=== PATIENT | male | born 1970 | race Caucasian/White ===

== ENCOUNTER 2017-08-13 18:45 | Emergency (ER) | payer OTHER ==
[2017-08-13] MEDS ORDERED: LORazepam 2 MG/ML SDV IVPUSH ONE (19:41)
[2017-08-13] MEDS ORDERED: Metoprolol Tartrate 25 MG Tab PO ONE (19:42)
[2017-08-13] MEDS ORDERED: Lisinopril 10 MG Tab PO ONE (19:42)
[2017-08-13] MEDS ORDERED: methylPREDNISolone Sodium Succinate 125 MG/2 ML SDV IVPUSH ONE (19:43)
[2017-08-13] MEDS ORDERED: Sodium Chloride 0.9% 1,000 ML IV SCH (19:45)
[2017-08-13] MEDS ORDERED: Lisinopril 10 MG Tab ONE (20:18)
--- NOTE | 2017-08-13 20:58 | EDM.PDOC ---
ED HPI GENERAL MEDICAL PROBLEM - General Chief Complaint: Allergic Reaction Stated Complaint: ALLERGIC REACTION Time Seen by Provider: 08/13/17 19:29 Source of Information: Reports: Patient History Limitations: Reports: No Limitations - History of Present Illness INITIAL COMMENTS - FREE TEXT/NARRATIVE: Hives, Allergic reaction; this is a 46 yr old male presents to ER for hives. He reports was ice fishing, wearing a new hat with rabbit fur, his face and scalp felt hot and began to itch, then feeling radiated to upper back and chest. started to have a coughing spell, took a benadryl, showered, but rash was worsen , decided to come to ER for evaluation. 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: Other Medication(s) (benadryl at 6 pm.), Other (see below) Other Treatments BULK TANK DRIVER: Benadryl - Related Data Allergies Allergy/AdvReac Type Severity Reaction Status Date / Time Penicillins Allergy Hives Verified 06/20/15 14:24 Home Meds: Home Meds Levothyroxine 25 mcg PO DAILY 03/05/14 [History] Lisinopril 20 mg PO DAILY 03/05/14 [History] LORazepam [LORazepam] 0.5 mg PO ASDIRECTED PRN 08/13/17 [History] Metoprolol Tartrate [Metoprolol Tartrate] 25 mg PO DAILY 08/13/17 [History] PARoxetine [Paxil] 20 mg PO DAILY 08/13/17 [History] Past Medical History Cardiovascular History: Reports: Hypertension Psychiatric History: Reports: Anxiety Endocrine/Metabolic History: Reports: Hypothyroidism - Past Surgical History Other HEENT Surgeries/Procedures: Lasik to both eyes Social & Family History - Tobacco Use Smoking Status *Q: Former Smoker Years of Tobacco use: 29 Packs/Tins Daily: 1 Used Tobacco, but Quit: Yes Month Tobacco Last Used: 08/16/11 - Caffeine Use Caffeine Use: Reports: Soda - Alcohol Use Days Per Week of Alcohol Use: 2 Number of Drinks Per Day: 2 Total Drinks Per Week: 4 Date of Last Drink: 08/10/17 Time of Last Drink: 22:00 - Recreational Drug Use Recreational Drug Use: No - Living Situation & Occupation Living situation: Reports: Occupation: Employed (has homes in [place] and [facility] ED ROS ALLERGIC REACTION - Review of Systems Review Of Systems: See Below Constitutional: Reports: Other (anxious) HEENT: Reports: No Symptoms Respiratory: Reports: Cough Cardiovascular: Reports: No Symptoms Endocrine: Reports: No Symptoms GI/Abdominal: Reports: No Symptoms : Reports: No Symptoms Musculoskeletal: Reports: No Symptoms Skin: Reports: Rash, Urticaria (face, upper chest and back, arms.) Neurological: Reports: No Symptoms Psychiatric: Reports: Anxiety Hematologic/Lymphatic: Reports: No Symptoms Immunologic: Reports: Other (concerns for new allergy to rabbit fur) ED EXAM GENERAL NO PERIP PULSE - Physical Exam Exam: See Below Exam Limited By: No Limitations General Appearance: Alert, WD/WN, Mild Distress Eye Exam: Bilateral Eye: EOMI, Normal Inspection Ears: Normal External Exam, Normal Canal, Hearing Grossly Normal, Normal TMs Nose: Normal Inspection, Normal Mucosa, No Blood Throat/Mouth: Normal Inspection, Normal Lips, Normal Teeth, Normal Gums, Normal Oropharynx, Normal Voice, No Airway Compromise Head: Atraumatic, Normocephalic Neck: Normal Inspection, Supple, Non-Tender, Full Range of Motion Respiratory/Chest: No Respiratory Distress, Lungs Clear, Normal Breath Sounds, No Accessory Muscle Use, Chest Non-Tender Cardiovascular: Normal Peripheral Pulses, Regular Rate, Rhythm, No Edema, No Murmur, No Rub GI/Abdominal: Normal Bowel Sounds, Soft, Non-Tender, No Organomegaly, No Distention, No Abnormal Bruit, No Mass (Male) Exam: Deferred Rectal (Males) Exam: Deferred Back Exam: Normal Inspection, Full Range of Motion, NT Extremities: Normal Inspection, Normal Range of Motion, Non-Tender, Normal Capillary Refill, No Pedal Edema Neurological: Alert, Oriented, CN II-XII Intact, Normal Cognition, Normal Gait, Normal Reflexes, No Motor/Sensory Deficits Psychiatric: Anxious Skin Exam: Warm, Dry, Other (hives noted to face, neck, upper chest and back, arm. mild raised macupapular rash. few scatterer wheals. + pruritus) Lymphatic: No Adenopathy Course - Vital Signs Last Recorded V/S: Last Vital Signs Temp 36.3 C 08/13/17 20:30 Pulse 93 08/13/17 20:30 Resp 17 08/13/17 20:30 BP 180/120 H 08/13/17 20:30 Pulse Ox 99 08/13/17 20:30 - Orders/Labs/Meds Orders: Active Orders 24 hr Category Date Time Status Sodium Chloride 0.9% [Normal Saline] 1,000 ml Med 08/13/17 19:45 Active IV ASDIRECTED Medication Orders Sodium Chloride (Normal Saline) 1,000 mls @ 999 mls/hr IV ASDIRECTED MICHEAL Last Admin: 08/13/17 20:09 Dose: 999 mls/hr Meds: Medications Generic Name Dose Route Start Last Admin Trade Name Freq PRN Reason Stop Dose Admin Sodium Chloride 1,000 mls @ 999 mls/hr 08/13/17 19:45 08/13/17 20:09 Normal Saline IV 999 mls/hr ASDIRECTED MICHEAL Administration Discontinued Medications Generic Name Dose Route Start Last Admin Trade Name Freq PRN Reason Stop Dose Admin Lisinopril 20 mg 08/13/17 19:42 08/13/17 20:20 Prinivil PO 08/13/17 19:43 20 mg ONETIME ONE Administration Lisinopril Confirm 08/13/17 20:18 Prinivil Administered 08/13/17 20:19 Dose 10 mg .ROUTE .STK-MED ONE Lorazepam 1 mg 08/13/17 19:41 08/13/17 20:15 Ativan IVPUSH 08/13/17 19:42 1 mg ONETIME ONE Administration Methylprednisolone Sodium Succinate 125 mg 08/13/17 19:43 08/13/17 20:11 Solu-Medrol IVPUSH 08/13/17 19:44 125 mg ONETIME ONE Administration Metoprolol Tartrate 25 mg 08/13/17 19:42 08/13/17 20:13 Lopressor PO 08/13/17 19:43 25 mg ONETIME ONE Administration - Re-Assessments/Exams Free Text/Narrative Re-Assessment/Exam: 08/13/17 21:06 given IV Normal Saline 1liter, IV ativan 1mg, IV solumedrol 125mg ; improved, ready for discharge to home. given home medication Metoprolol 25 mg po and Lisinopril 20 mg po Departure - Departure Time of Disposition: 21:09 Disposition: Home, Self-Care 01 Condition: Good Clinical Impression: Hypertension Qualifiers: Hypertension type: unspecified Qualified Code(s): I10 - Essential (primary) hypertension Allergic reaction Qualifiers: Encounter type: initial encounter Qualified Code(s): T78.40XA - Allergy, unspecified, initial encounter - Discharge Information Referrals: PCP,None [Primary Care Provider] - Forms: ED Department Discharge Care Plan Goals: Allergic Reaction -given Solumedrol 125mg iv in ER, IV fluids; improved -home medication start in morning Medrol dose pack as directed continue Benadryl 25mg by mouth every 4 to 6 hours avoid any exercise, running, physical activities for the next 5 days. return to ER for shortness of breath, cough, worsen hives/rash, swelling or any concerns. High blood pressure -take medications daily as prescribed by your Primary Care Provider -given Metoprolol tartate 25mg po and Lisinopril 20 mg po in ER -restart medication in am. Return to Clinic or ER if not improved or symptoms worsen. - Problem List & Annotations (1) Hypertension SNOMED Code(s): 20600189 Code(s): I10 - ESSENTIAL (PRIMARY) HYPERTENSION Status: Acute Priority: High Current Visit: Yes Qualifiers: Hypertension type: unspecified Qualified Code(s): I10 - Essential (primary ) hypertension (2) Allergic reaction SNOMED Code(s): 072524724 Code(s): T78.40XA - ALLERGY, UNSPECIFIED, INITIAL ENCOUNTER Status: Acute Priority: High Current Visit: Yes Qualifiers: Encounter type: initial encounter Qualified Code(s): T78.40XA - Allergy, unspecified, initial encounter - Problem List Review Problem List Initiated/Reviewed/Updated: Yes - My Orders Last 24 Hours: My Active Orders 08/13/17 19:45 Sodium Chloride 0.9% [Normal Saline] 1,000 ml IV ASDIRECTED - Assessment/Plan Last 24 Hours: My Active Orders 08/13/17 19:45 Sodium Chloride 0.9% [Normal Saline] 1,000 ml IV ASDIRECTED Plan: Allergic Reaction -given IV Solumedrol 125mg, IV Ativan 1 mg., Normal Saline IV fluids; improved -home medication start in morning Medrol dose pack as directed continue Benadryl 25mg by mouth every 4 to 6 hours avoid any exercise, running, physical activities for the next 5 days. return to ER for shortness of breath, cough, worsen hives/rash, swelling or any concerns. High blood pressure -take medications daily as prescribed by your Primary Care Provider -given Metoprolol tartate 25mg po and Lisinopril 20 mg po in ER -restart medication in am. Return to Clinic or ER if not improved or symptoms worsen.
[2017-08-13 21:06] VITALS: BP 186/110
== END 2017-08-13 21:13 | disposition home or self-care (01) ==
LOC: JP.ED 18:45
DX: L50.0 Allergic urticaria (principal); I10 Essential (primary) hypertension; E03.9 Hypothyroidism, unspecified; Z88.0 Allergy status to penicillin; X58.XXXA Exposure to other specified factors, initial encounter
CPT/HCPCS: 96361; 96374; 96375; 99283; A9270; J2060; J2930; J7040; J7030

== ENCOUNTER 2018-10-31 14:50 | Emergency (ER) | payer OTHER ==
[2018-10-31] MEDS ORDERED: methylPREDNISolone Sod Succ 125 MG in Dextrose 5% in Water 100 ML IV ONE ×2 (15:48)
[2018-10-31] MEDS ORDERED: methylPREDNISolone Sodium Succinate 125 MG/2 ML SDV IVPUSH ONE (15:54)
--- NOTE | 2018-10-31 16:17 | EDM.PDOC ---
ED HPI GENERAL MEDICAL PROBLEM - General Chief Complaint: Eye Problems Stated Complaint: STUNG BY BEE Time Seen by Provider: 10/31/18 16:12 Source of Information: Reports: Patient History Limitations: Reports: No Limitations - History of Present Illness INITIAL COMMENTS - FREE TEXT/NARRATIVE: 48 yo otherwise healthy presents with concerns of bee sting Was working with bees this afternoon Stung near the left eye Has noticed swelling here, some itching involving the left lip. No perioral, tongue, or oropharyngeal tingling No dyspnea No rash Hx of prior bee stings, caused swelling, never this severe - Related Data Allergies Allergy/AdvReac Type Severity Reaction Status Date / Time Penicillins Allergy Hives Verified 10/31/18 15:20 Home Meds: Home Meds RX: Levothyroxine 25 mcg PO DAILY 03/05/14 [History] RX: Lisinopril 20 mg PO DAILY 03/05/14 [History] LORazepam 0.5 mg PO ASDIRECTED PRN 08/13/17 [History] Metoprolol Tartrate 50 mg PO DAILY 08/13/17 [History] PARoxetine [Paxil] 20 mg PO DAILY 08/13/17 [History] Past Medical History Cardiovascular History: Reports: Hypertension Neurological History: Reports: Concussion Psychiatric History: Reports: Anxiety Endocrine/Metabolic History: Reports: Hypothyroidism - Past Surgical History Other HEENT Surgeries/Procedures: Lasik to both eyes Social & Family History - Tobacco Use Smoking Status *Q: Former Smoker Used Tobacco, but Quit: Yes Month/Year Tobacco Last Used: 0 - Caffeine Use Caffeine Use: Reports: Soda - Recreational Drug Use Recreational Drug Use: No - Living Situation & Occupation Living situation: Reports: Occupation: Employed (has homes in [facility] ED ROS GENERAL - Review of Systems Review Of Systems: See Below Constitutional: Reports: No Symptoms HEENT: Reports: No Symptoms Respiratory: Reports: No Symptoms. Denies: Shortness of Breath, Wheezing Cardiovascular: Reports: No Symptoms Endocrine: Reports: No Symptoms GI/Abdominal: Denies: Abdominal Pain : Reports: No Symptoms Musculoskeletal: Reports: No Symptoms Skin: Reports: Other (swelling around left eye). Denies: Urticaria Neurological: Reports: No Symptoms Psychiatric: Reports: No Symptoms Hematologic/Lymphatic: Reports: No Symptoms Immunologic: Reports: No Symptoms ED EXAM GENERAL W FULL EYE - Physical Exam Exam: See Below Exam Limited By: No Limitations General Appearance: Alert, No Apparent Distress Comments: erythema and swelling around the left eye Ears: Normal External Exam Nose: Normal Inspection Throat/Mouth: Normal Inspection, No Airway Compromise Head: Atraumatic, Normocephalic Neck: Normal Inspection Respiratory/Chest: Lungs Clear. No: Wheezing Cardiovascular: Regular Rate, Rhythm GI/Abdominal: Soft, Non-Tender Back Exam: Normal Inspection Extremities: Normal Inspection Neurological: Alert, Oriented Psychiatric: Normal Affect Skin Exam: Warm, Dry. No: Rash Course - Vital Signs Last Recorded V/S: Last Vital Signs Temp 35.0 C L 10/31/18 15:19 Pulse 83 10/31/18 16:59 Resp 25 H 10/31/18 16:59 BP 157/109 H 10/31/18 16:59 Pulse Ox 95 10/31/18 16:59 - Orders/Labs/Meds Meds: Medications Discontinued Medications Generic Name Dose Route Start Last Admin Trade Name Freq PRN Reason Stop Dose Admin Methylprednisolone Sodium Succinate 125 mg 10/31/18 15:54 10/31/18 16:01 Solu-Medrol IVPUSH 10/31/18 15:55 125 mg ONETIME ONE Administration - Re-Assessments/Exams Free Text/Narrative Re-Assessment/Exam: 48 yo with facial swelling following bee sting. Localized reaction at this point. 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
[2018-10-31 17:00] VITALS: BP 157/109
== END 2018-10-31 17:12 | disposition home or self-care (01) ==
LOC: JP.ED 14:50
DX: T63.441A Toxic effect of venom of bees, accidental (unintentional), initial encounter (principal); I10 Essential (primary) hypertension; E03.9 Hypothyroidism, unspecified; F41.9 Anxiety disorder, unspecified; Z79.899 Other long term (current) drug therapy; Z87.891 Personal history of nicotine dependence; Z88.0 Allergy status to penicillin
CPT/HCPCS: 96374; 99282; J2930

== ENCOUNTER 2020-03-27 04:56 | Emergency (ER) | payer OTHER ==
[2020-03-27 05:27] VITALS: BP 141/90; PULSE 76
--- NOTE | 2020-03-27 05:36 | EDM.PDOC ---
ED HPI GENERAL MEDICAL PROBLEM - General Chief Complaint: Skin Complaint Stated Complaint: CELLULITIS ON NOSE Time Seen by Provider: 03/27/20 05:28 Source of Information: Reports: Patient History Limitations: Reports: No Limitations - History of Present Illness INITIAL COMMENTS - FREE TEXT/NARRATIVE: Patient presents for continued evaluation redness and pain on his nose and face. Symptoms began on March 24 with a single red spot on the the right side of the nose. It was burning and extremely painful. He was seen by primary care who prescribed doxycycline for presumed skin/soft tissue infection. He continued to have increasing areas of redness and pain over the right cheek and did a video virtual visit Friday and was prescribed cephalexin in addition to doxycycline for symptoms. He noticed pain in the roof of his mouth and thought that he might have burned his mouth eating pizza but he is also noticed swelling of the upper lip and some single red patches that are also burning and very painful on the right half of the upper lip region and now extending laterally toward the ear. He has been unable to sleep for the last 2 nights because of the pain associated with this infection. Onset: Gradual Duration: Day(s): (4) Location: Reports: Face Quality: Reports: Burning, Throbbing Severity: Moderate Improves with: Reports: None Worsens with: Reports: Movement Associated Symptoms: Reports: No Other Symptoms Middle Nose Pain Score (Numeric/FACES): 8 - Related Data Allergies Allergy/AdvReac Type Severity Reaction Status Date / Time Penicillins Allergy Hives Verified 03/27/20 05:17 Home Meds: Home Meds Levothyroxine 25 mcg PO DAILY 03/05/14 [History] Lisinopril 20 mg PO DAILY 03/05/14 [History] LORazepam 0.5 mg PO ASDIRECTED PRN 08/13/17 [History] Metoprolol Tartrate 50 mg PO DAILY 08/13/17 [History] PARoxetine [Paxil] 20 mg PO DAILY 08/13/17 [History] Multivitamin 1 tab PO DAILY 03/27/20 [History] Past Medical History HEENT History: Reports: Impaired Vision Cardiovascular History: Reports: Hypertension Respiratory History: Reports: Asthma Neurological History: Reports: Concussion Psychiatric History: Reports: Anxiety Endocrine/Metabolic History: Reports: Hypothyroidism - Past Surgical History HEENT Surgical History: Reports: LASIK Other HEENT Surgeries/Procedures: Lasik to both eyes Social & Family History - Tobacco Use Smoking Status *Q: Never Smoker - Caffeine Use Caffeine Use: Reports: Soda - Alcohol Use Days Per Week of Alcohol Use: 1 Number of Drinks Per Day: 4 Total Drinks Per Week: 4 - Recreational Drug Use Recreational Drug Use: No - Living Situation & Occupation Living situation: Reports: Occupation: Employed (has homes in [place] and [facility].) ED ROS GENERAL - Review of Systems Review Of Systems: See Below HEENT: Reports: Dental Pain (Right maxillary anterior teeth region.), Other (Swelling of upper lip, right side along with red spots. Pain in the roof of the mouth.). Denies: Throat Pain, Throat Swelling Respiratory: Reports: No Symptoms Cardiovascular: Reports: No Symptoms Skin: Reports: Erythema, Lesions ED EXAM, SKIN/RASH Exam: See Below Text/Narrative:: This is an adult male seated on a side chair in room 1. His nose and right cheek region have scattered lesions and redness. There is some dried crusted material on a couple of spots. Exam Limited By: No Limitations General Appearance: Moderate Distress Ears: Normal External Exam Nose: Other (The right half of the nose is confluently red, swollen, extremely painful.) Throat/Mouth: Other (The right half of the hard palate shows a variety of irregular lesions there is also 1 on the buccal mucosa of the right cheek.) Head: Atraumatic, Facial Swelling, Facial Tenderness (Palpation along the middle division of cranial nerve V is extremely painful. There is 1 small red lesion on lower right eyelid.) Neck: Normal Inspection Respiratory/Chest: No Respiratory Distress Cardiovascular: Regular Rate, Rhythm Course - Vital Signs Last Recorded V/S: Last Vital Signs Temp 36.8 C 03/27/20 05:23 Pulse 76 03/27/20 05:23 Resp 16 03/27/20 05:23 BP 141/90 H 03/27/20 05:23 Pulse Ox 96 03/27/20 05:23 - Re-Assessments/Exams Free Text/Narrative Re-Assessment/Exam: 03/27/20 06:30 I am concerned he has herpes zoster as a cause for his symptoms. The fact that it is only the right half of the nose, the right half of the hard palate and the lesions on the cheek are following along 1 of the divisions of the trigeminal nerve seem most consistent with herpes zoster. He did have the zosters vaccination in 2018 but the history and exam seems most consistent at the day. [facility] prescriptions were placed for acyclovir 400 mg, 20 tablets: Tramadol 50 mg, 15 tablets; both use as directed. For the time being, he should continue his doxycycline and cephalexin. He needs to contact his primary care team today to arrange a follow-up evaluation. If this is herpes zoster the potential for involving the right eye is significant and he would need evaluation for that. Reasons to return to emergency department reviewed. Departure - Departure Time of Disposition: 06:08 Disposition: Home, Self-Care 01 Condition: Good Clinical Impression: Zoster Qualifiers: Herpes zoster complications: without complications Qualified Code(s): B02.9 - Zoster without complications - Discharge Information Instructions: [facility], [id number] Referrals: Lg Torres NP [Primary Care Provider] - Forms: ED Department Discharge Additional Instructions: Start acyclovir, taking 2 tablets 3 times a day. Use tramadol 1 tablet up to 3 times a day as needed for pain. Contact your primary care team this morning to arrange a recheck visit within the next 24 hours. This looks like the start of shingles, the other name of which is herpes zoster. Continue your antibiotics until you recheck with your primary team in person. Sepsis Event Note (ED) - Evaluation Sepsis Screening Result: No Definite Risk - Focused Exam Vital Signs: Vital Signs Temp Pulse Resp BP Pulse Ox 03/27/20 05:23 36.8 C 76 16 141/90 H 96
== END 2020-03-27 06:22 | disposition home or self-care (01) ==
LOC: JP.ED 04:56
DX: B02.9 Zoster without complications (principal); I10 Essential (primary) hypertension; J45.909 Unspecified asthma, uncomplicated; E03.9 Hypothyroidism, unspecified; F41.9 Anxiety disorder, unspecified; Z88.0 Allergy status to penicillin; Z79.899 Other long term (current) drug therapy
CPT/HCPCS: 99283

== ENCOUNTER 2024-11-15 01:28 | Emergency (ER) | payer OTHER ==
[2024-11-15] MEDS: Clindamycin HCl 150 MG Cap PO ONE (02:08)
[2024-11-15 02:19] VITALS: BP 197/123; PULSE 86
== END 2024-11-15 02:26 | disposition home health service (06) ==
LOC: JP.ED 01:28
DX: K04.7 Periapical abscess without sinus (principal); I10 Essential (primary) hypertension; J45.909 Unspecified asthma, uncomplicated; E03.9 Hypothyroidism, unspecified; F17.210 Nicotine dependence, cigarettes, uncomplicated; Z88.0 Allergy status to penicillin; Z79.899 Other long term (current) drug therapy; Z79.890 Hormone replacement therapy; Z86.16 Personal history of COVID-19
CPT/HCPCS: 99283; 99284; A9270-GY